=== PATIENT | male | born 1975 | race Two or more races ===

== ENCOUNTER → 2021-11-27 | Outpatient (CLI) | payer BC ==
[2021-11-28 07:14] LABS: SARS-Cov-2 (COVID-19) PCR, MMC NEGATIVE (NEGATIVE)
== END | disposition home or self-care (01) ==
LOC: LAB SHORT 06:30
PROVIDERS: Anesthesiology
DX: Z01.812 Encounter for preprocedural laboratory examination (principal); Z20.822 Contact with and (suspected) exposure to COVID-19
CPT/HCPCS: U0004